=== PATIENT | male | born 2005 | race Caucasian/White ===

== ENCOUNTER 2024-03-13 15:23 | Inpatient (IN) | payer MEDICAID, SELFPAY ==
[2024-03-13] VITALS (104 sets, daily range): BP systolic 82–136; BP diastolic 39–84; PULSE 92–139; RESP 4–29; TEMP 36.6; O2SAT 95–100
--- NOTE | 2024-03-13 15:30 | RT.EKG_ITS ---
APPROVED REPORT Exam: Resting ECG Reason for Exam: OD Patient Location: E HR:108 bpm ECG Measurements Heart Rate 108 AXIS AK 117 P 56 QRSd 88 QRS 74 QT 329 T 57 QTc 441 Conclusion Sinus tachycardia...rate> 99 I have reviewed and interpreted ECG and agree with software generated interpretation.
--- NOTE | 2024-03-13 15:41 | W.ED.GENAD ---
Discharge Plan Disposition Patient Disposition: Admit to [facility] Condition: Stable Discharge Details Chief Complaint: Suicide-Atempt Clinical Impression: Intentional overdose Primary Care Provider: Beronica,Local ED Provider: Balbir Early Home Meds and New Rx's Prescriptions: No Action albuterol 90 mcg/actuation aerosol 90 mcg inhalation PRN bupropion HCl [Wellbutrin XL] 300 mg PO .daily HPI General Date/Time Provider Initiated Documentation: 03/13/24 15:40. HPI Narrative: 18 year-old male presents to ED today by POV/ambulating with his father with a chief complaint of intentional ingestion of 3000mg of XR Wellbutrin with onset at 1030. Quality described as suicidal intention, not in therapy- no prior attempts, but deals with lifelong chronic suicidality, no radiation to chest pain, shortness of breath, fever/chills/sweats, endorses some nausea, dry mouth, tingling in hands, denies tremors. Severity is described as mild currently. Palliating factors include nothing specific. Provoking factors include nothing specific. Events leading up to the incident/Associated Symptoms: Patient has father with him, supportive appropriate interactions. Patient not anticoagulated. Related Data Home Medications ?Medication ?Instructions ?Recorded ?Confirmed albuterol 90 mcg/actuation aerosol 90 mcg inhalation PRN 03/13/24 03/13/24 inhaler bupropion HCl 300 mg PO .daily 03/13/24 03/13/24 General Stated Complaint: Suicide-Atempt KRISTIN: 2 Review of Systems All systems reviewed & are unremarkable except as noted in HPI and below Exam Narrative Exam Narrative: GENERAL APPEARANCE: Well-nourished, non-toxic, awake and alert, atraumatic, no acute distress. SKIN: Warm, pink, dry, intact, without rashes/lesions/ulcerations. HEAD: Normocephalic, atraumatic, normal hair distribution for gender/age. EYES: Normal conjunctiva, no exudates on lids/lashes. ENT: Nares patent, no circumoral cyanosis, no facial swelling, minor tongue fasciculations NECK: Supple, trachea midline, painless cervical ROM. LUNGS/CHEST: Lungs CTA bilaterally, non-labored respirations, normal A/P diameter, symmetrical expansion, no chest wall deformity HEART (CV/PV): Regular rate and rhythm without murmur, no peripheral edema, no JVD. ABDOMEN: Soft, non-distended, no guarding. MSK: Normal ROM, no swelling/deformity to bilateral UEs or LEs, moving all extremities without weakness, no cyanosis, spine midline without tenderness, normal curvature. NEURO: Mental Status AAOx4 - alert to person, place, time, events No facial droop, no forehead involvement. Motor: No focal weakness - strength 5/5 in bilateral UEs and LEs, proximal and distal, symmetric. Sensory: sensation intact to light touch globally. Gait normal: patient ambulated without ataxia into ED room. PSYCH: euthymic, cooperative, pleasant, appropriate speech Course Vital Signs Vital signs: Vital Signs Temperature 36.6 C 03/13/24 15:31 Pulse 125 H 03/13/24 15:31 Respiratory Rate 16 03/13/24 15:31 Blood Pressure 134/84 03/13/24 15:31 Pulse Oximetry 100 03/13/24 15:31 Temperature 36.6 C 03/13/24 15:31 Temperature Source Temporal Artery Scan 03/13/24 15:31 Pulse 125 H 03/13/24 15:31 Respiratory Rate 16 03/13/24 15:31 Blood Pressure 134/84 03/13/24 15:31 Blood Pressure Position Sitting 03/13/24 15:31 Pulse Oximetry 100 03/13/24 15:31 Oxygen Delivery Method Room Air 03/13/24 15:31 Oxygen Flow Rate 0 03/13/24 15:31 Pain Level 0 03/13/24 15:31 Medical Decision Making This dictation utilizes [id number] dictation software and may contain unedited grammatical errors. 18 year-old male presents to ED today by POV/ambulating with his father with a chief complaint of intentional ingestion of 3000mg of XR Wellbutrin with onset at 1030. Quality described as suicidal intention, not in therapy- no prior attempts, but deals with lifelong chronic suicidality, no radiation to chest pain, shortness of breath, fever/chills/sweats, endorses some nausea, dry mouth, tingling in hands, denies tremors. Severity is described as mild currently. Palliating factors include nothing specific. Provoking factors include nothing specific. Events leading up to the incident/Associated Symptoms: Patient has father with him, supportive appropriate interactions.. Patients' medical history: Depression, asthma. Family and social history: Lives at home with father, currently unemployed due to depression. Pertinent exam findings / vital signs include minor tongue fasciculations, benign cardiopulmonary status on arrival, benign abdomen, no tremulous movements. Differential / pathologies of concern include intentional overdose, high risk for developing seizures. Diagnostic studies of: -CBC, CMP, UDS, UA, alcohol level, acetaminophen level, salicylates, magnesium, serial EKGs. -CBC benign, no anemia or leukocytosis -CMP shows very mild hypokalemia 3.4 no other actionable abnormalities -UDS is negative -Alcohol level negative -Salicylates and acetaminophen level negative -UA shows ketonuria -Initial EKG shows a heart rate of 108 bpm with normal QT QTc intervals, normal axis, no ST changes or T wave inversions, questionable ST depression in V3 and 4 less than 1 mm, flattening of the T waves in the anterior leads -Repeat EKG q2HR shows mild increase in QT to 450, no widened QRS Interventions of: -1mg Ativan given shortly after arrival, given 1L IVF NS bolus, then started on LR @ 250mL/hr. ED Course/Assessment/Plan: 18-year-old male presents with intentional ingestion of extended release Wellbutrin of 3000 mg at 1030 this morning. He states that he had suicidal intent. I did speak with [facility] poison control they recommend aggressive supportive measures, benzos for any tremulous movements, agitations, hallucinations, recommend standard seizure protocol sometimes stating that these patients have a risk to go into status epilepticus and required intubation. They need a minimum of 24 hours observation, some have had seizure activity after 24 hours as well. Serial EKG shows no concerns for widened QRS or QTc prolongation, patient remained stable throughout his visit here today with mild tachycardia in the 10 7-1 15 range with normotensive blood pressure, no developing fevers, no worsening tremulous movements. I did present the patient to be admitted here at [facility], Dr. Scott accepted for admission at 1930. Patient is not medically cleared to speak with [facility] at this time. Findings not consistent with active seizure activity. Disposition of Intentional Overdose. Patient verbalized understanding of the plan and return to ED criteria and engaged in shared decision making. Medical Records Medical records reviewed: Yes I reviewed the patient's medical records. Lab Data Lab results reviewed: Yes I reviewed the patient's lab results. Labs: Laboratory Tests Range/Units 03/13/24 03/13/24 16:05 16:32 WBC (4.4-10.8) 10^3/uL 5.37 RBC (4.36-5.78) 10^6/uL 5.69 Hgb (13.5-17.5) g/dL 17.1 Hct (40.0-50.0) % 46.7 MCV (80-95) fL 82 MCH (27.0-33.0) pg 30.1 MCHC (32.0-36.0) % 36.6 H RDW (11.8-14.1) % 11.4 L Plt Count (130-400) 10^3/uL 269 MPV (8.0-11.0) fL 9.7 Immature Gran % % 0.2 Neutrophils % % 57.9 Lymphocytes % % 32.6 Monocytes % % 7.8 Eosinophils % % 0.9 Basophils % % 0.6 Nucleated RBC % (0.0-0.3) % 0.0 Absolute Neutrophils (1.2-6.7) 10^3/uL 3.11 Absolute Lymphocytes (1.2-3.4) 10^3/uL 1.75 Absolute Monocytes (0.1-0.8) 10^3/uL 0.42 Absolute Eosinophils (0.0-0.7) 10^3/uL 0.05 Absolute Basophils (0.0-0.2) 10^3/uL 0.03 Sodium (136-145) mmol/L 139 Potassium (3.5-5.1) mmol/L 3.4 L Chloride (98-107) mmol/L 103 Carbon Dioxide (21.0-32.0) mmol/L 24.6 Anion Gap (3-11) mmol/L 11.4 H BUN (7-18) mg/dL 10 Creatinine (0.70-1.30) mg/dL 1.3 Est GFR (CKD-EPI 2020) (mL/min/1.73m2) 80.65 Glucose (74-106) mg/dL 130 H Calcium (8.5-10.1) mg/dL 9.6 Magnesium (1.8-2.4) mg/dL 2.0 Total Bilirubin (0.2-1.0) mg/dL 1.00 AST (15-37) U/L 14 L ALT (16-63) U/L 17 Alkaline Phosphatase (46-116) U/L 73 Total Protein (6.4-8.2) g/dL 7.6 Albumin (3.4-5.0) g/dL 4.5 Urine Color (Yellow) Yellow Urine Clarity (Clear) Clear Urine pH (5-8) 8.5 H Ur Specific [place] (1.005-1.025) 1.020 Urine Protein (Neg-Trace) mg/dL Negative Urine Ketones (Negative) mg/dL 80 H Urine Blood (Negative) Negative Urine Nitrite (Negative) Negative Urine Bilirubin (Negative) Negative Urine Urobilinogen (Up to 0.2) mg/dL 0.2 Ur Leukocyte Esterase (Negative) Negative Urine Glucose (Negative) mg/dL Negative Salicylates (<2.8) mg/dL < 2.8 Urine Opiates Screen (Negative) Negative Urine Methadone Screen (Negative) Negative Acetaminophen (10-30) ug/mL < 2 Ur Barbiturates Screen (Negative) Negative Ur Tricyclics Screen (Negative) Negative Ur Amphetamines Screen (Negative) Negative U Benzodiazepines Scrn (Negative) Negative Urine Cocaine Screen (Negative) Negative Ur THC Screen (Negative) Negative Ethyl Alcohol (<10) mg/dL < 3.0 Quality:SDOH Health Related Social Needs: No Data to Display PFSH All Active Problems (Updated 03/13/24 @ 19:51 by JOSE Mccurdy) Intentional overdose (Acute) Social History Smoking/Tobacco Use Status: Never Smoking risk assessment performed?: Yes Alcohol Intake: current Alcohol Intake frequency: holidays/special occasions only Alcohol type: beer, wine and hard liquor Drug use: Never Substance use type: does not use Housing: apartment Do you feel safe at home: Yes Additional Social history: No currently romantic relationship. Positive supportive relationship w mom and dad as well as both brothers.
[2024-03-13] MEDS: Normal Saline 1,000 ML 1000 ML IV (16:10)
[2024-03-13 16:13] LABS: Abs Immature Grans 0.01 10^3/uL (0.0-0.06); Absolute Basophil Count 0.03 10^3/uL (0.0-0.2); Absolute Eosinophil Count 0.05 10^3/uL (0.0-0.7); Absolute Lymphocyte Count 1.75 10^3/uL (1.2-3.4); Absolute Monocyte Count 0.42 10^3/uL (0.1-0.8); Absolute Neutrophil Count 3.11 10^3/uL (1.2-6.7); Basophils % 0.6 %; Eosinophils % 0.9 %; HCT 46.7 % (40.0-50.0); HGB 17.1 g/dL (13.5-17.5); Immature Grans % 0.2 %; Lymphocytes % 32.6 %; MCH 30.1 pg (27.0-33.0); MCHC 36.6 % (32.0-36.0); MCV 82 fL (80-95); MPV 9.7 fL (8.0-11.0); Monocytes % 7.8 %; Neutrophils % 57.9 %; Platelet Count 269 10^3/uL (130-400); RBC 5.69 10^6/uL (4.36-5.78); RDW 11.4 % (11.8-14.1); RDW-SD 33.7 fL; WBC 5.37 10^3/uL (4.4-10.8)
[2024-03-13] MEDS: LORazepam 2 MG/ML VIAL IVP (16:23)
[2024-03-13 16:28] LABS: ALT 17 U/L (16-63); AST 14 U/L (15-37); Albumin 4.5 g/dL (3.4-5.0); Alkaline Phosphatase 73 U/L (46-116); Anion Gap 11.4 mmol/L (3-11); BUN 10 mg/dL (7-18); CO2 24.6 mmol/L (21.0-32.0); CREATININE 1.3 mg/dL (0.70-1.30); Calcium 9.6 mg/dL (8.5-10.1); Chloride 103 mmol/L (98-107); ETHANOL BLOOD < 3.0 mg/dL (<10); Estimated GFR 80.65 (mL/min/1.73m2); Glucose 130 mg/dL (74-106); Potassium 3.4 mmol/L (3.5-5.1); Sodium 139 mmol/L (136-145); Total Protein 7.6 g/dL (6.4-8.2)
[2024-03-13 16:46] LABS: Bilirubin Negative (Negative); Blood Negative (Negative); Clarity Clear (Clear); Glucose Negative (Negative); Ketones 80 mg/dL (Negative); Leukocyte Esterase Negative (Negative); Nitrite Negative (Negative); Urobilinogen 0.2 mg/dL (Up to 0.2); pH 8.5 (5-8)
[2024-03-13 16:53] LABS: Acetaminophen < 2 ug/mL (10-30); Salicylate < 2.8 mg/dL (<2.8)
[2024-03-13 17:05] LABS: *AMPHETAMINES SCREEN URINE Negative (Negative); *BARBITURATES SCREEN URINE Negative (Negative); *BENZODIAZEPINES SCREEN URINE Negative (Negative); Cannabinoids THC Negative (Negative); Cocaine Screen,Urine Negative (Negative); METHADONE URINE SCREEN Negative (Negative); OPIATES URINE SCREEN Negative (Negative)
[2024-03-13 17:07] LABS: Tricyclic Antidepressants Negative (Negative)
--- NOTE | 2024-03-13 17:39 | NUR.NOTE ---
Nursing Note: Mom called to check in on the patient. She is not on his HIPAA but he did give me verbal confirmation to fill her in on what was happening. She is hoping to come and check in on him tomorrow.
--- NOTE | 2024-03-13 20:00 | RT.EKG_ITS ---
APPROVED REPORT Exam: Resting ECG Reason for Exam: wellbutrin OD Patient Location: E HR:110 bpm ECG Measurements Heart Rate 110 AXIS MI 176 P 52 QRSd 93 QRS 67 QT 335 T 44 QTc 453 Conclusion Sinus tachycardia...rate> 99 I have reviewed and interpreted ECG and agree with software generated interpretation.
[2024-03-13] MEDS: Ondansetron 4 MG/2 ML VIAL (20:07)
[2024-03-13] MEDS: LORazepam 2 MG/ML VIAL 1 MG IVP (20:24)
--- NOTE | 2024-03-13 20:45 | W.PM.HP.N ---
Date of service: 03/13/24 Time of Service: 20:45 Assessment and Plan Assessment and plan (1) Intentional overdose: Start date: 03/13/24 Status: Acute Assessment and plan: This is a 18-year-old gentleman with chronic thoughts of suicide and depression with ADHD by history recently on Wellbutrin XL with which he overdosed intentionally. He will be observed for 24 hours with frequent EKG and cardiac monitoring as well as observation for seizure activity or unstable vital signs. Presently he is doing well. He will have a sitter overnight and once medically cleared after 24 hours, he will see noticing the more for plan of care. He is a full code. Qualifiers: Encounter type: initial encounter Qualified Code(s): T50.902A - Poisoning by unspecified drugs, medicaments and biological substances, intentional self-harm, initial encounter (2) Depression with suicidal ideation: Start date: 03/13/24 Status: Chronic Assessment and plan: This is been a chronic problem with this patient and he needs better follow-up with counseling and evaluation for possible PTSD. He is not open being hesitant to discuss possible traumas but this may be a factor in his continued dysfunction living with his father and suicidal thoughts. He has not self treating with alcohol or illicit drugs at this time. (3) Hypokalemia: Start date: 03/13/24 Status: Acute Assessment and plan: Patient has hypokalemia which may be nutritional not being on diuretics chronically. Potassium supplements if tolerated. He did have some slight nausea have to be admitted and this we treated with Zofran IV. Follow-up labs in the morning. History of Present Illness History of Present Illness Chief Complaint: Attempted suicide with Wellbutrin overdose, continuous suicidal ideation. Narrative: This is a 18-year-old male patient who has a chronic history of depression with failed counseling and continues suicidal ideation mostly thinking of drown himself or stab himself with a knife when he was younger but more recently he overdosed on Wellbutrin 3 g which was a prescription for his mood disorder. He does have ADHD but is not on medical therapy. He also has a history of asthma but only uses rescue inhalers. Late the morning of his presentation at 10:30 he took 10 of his Wellbutrin XL 300 mg capsules and did not report this to his father with whom he lives until about 17:00 because of the sensation that it was kicking in and he panicked because of the sedation. In the ED he was somewhat sedated and intubation was entertained but he did not have respiratory suppression and did not require intervention. He was slightly anxious but his cardiac monitoring was stable and EKGs did not reveal any significant QT prolongation. His blood pressure was not elevated and slightly low but responded to IV fluids with lactated Ringer's 1000 cc bolus. He did have Ativan because of his anxiety and continued to have some slight tachycardia. He had no seizure activity but was on precautions with this overdose. The time I saw the patient he was comfortable and conversant with a normal affect and did not appear distressed. He will be seeing mental health once he is medically cleared and will have a sitter throughout the night because of his side effects. Poison control has been engaged and has no other recommendations. He will need a least 24-hour observation before being medically cleared. The most dangerous outcome from this overdose would be QT prolongation with fatal dysrhythmia, status epilepticus and/or respiratory suppression with sedation. He does not appear to be actively having suicidal ideation. With the patient having panic and aborting his suicide attempt and not having action on other suicidal ideation in the past, he may have a better prognosis for treatment and is open to counseling at this time as well as adjustment of medical therapy. He is a full code. Review of Systems Narrative: 13 point review of systems otherwise unrevealing or stable. PFSH All Active Problems (Updated 03/13/24 @ 22:16 by Kristian Martinez) Hypokalemia (Acute) Depression with suicidal ideation (Chronic) Intentional overdose (Acute) Social History Smoking/Tobacco Use Status: Never Smoking risk assessment performed?: Yes Alcohol Intake: current Alcohol Intake frequency: holidays/special occasions only Alcohol type: beer, wine and hard liquor Drug use: Never Substance use type: does not use Housing: house Do you feel safe at home: Yes Additional Social history: No currently romantic relationship. Positive supportive relationship w mom and dad as well as both brothers. Meds Allergies and Home Medications Allergies Allergy/AdvReac Type Severity Reaction Status Date / Time No Known Allergies Allergy Unverified 03/14/24 01:59 Home Medications ?Medication ?Instructions ?Recorded ?Confirmed ?Type albuterol 90 mcg/actuation aerosol 90 mcg inhalation PRN 03/13/24 03/13/24 History inhaler bupropion HCl 300 mg PO .daily 03/13/24 03/13/24 History Exam Narrative Exam Narrative: General: Patient is moderately obese, appears younger than stated age, smiling during conversation and very cooperative with normal affect and good eye contact. He is in no acute distress. He does not appear depressed. HEENT: Normocephalic, eyes with pupils equal and reactive to light specially, extraocular movement intact and sclera anicteric. Oropharynx with moist Koza and good sensation. Neck: Supple without JVD. Back: Normal posture without CVA tenderness. Lungs: Clear to oscillation percussion without focal rales or rhonchi. No expiratory wheeze. Vesicular breath sounds diffusely. Heart: Regular rate rhythm with no murmurs gallops appreciated. Abdomen: Mildly obese contour, soft palpation with no guarding or rebound. Nontender. Bowel sounds positive all quadrants. No palpable hepatosplenomegaly. Genitalia/rectal: Exam deferred. Extremity: No clubbing, cyanosis or pitting edema. Peripheral pulses intact with good capillary refill. Skin: Normal color, warm and dry. Neuro: Cranial nerves II to XII, no focal motor deficits or tremor. Psych: Slightly euphoric affect the patient appearing comfortable and actually smiling during exam. Good eye contact. Mood is slightly depressed no abnormal thought processes. Remote and recent memory intact. Patient appears to have good insight into his need for treatment of his psychiatric disease. Results Labs 03/14/24 06:15 03/14/24 06:15 Labs: Laboratory Results - last 24 hr 03/13/24 03/13/24 16:05 16:32 WBC 5.37 RBC 5.69 Hgb 17.1 Hct 46.7 MCV 82 MCH 30.1 MCHC 36.6 H RDW 11.4 L Plt Count 269 MPV 9.7 Immature Gran % 0.2 Neutrophils % 57.9 Lymphocytes % 32.6 Monocytes % 7.8 Eosinophils % 0.9 Basophils % 0.6 Nucleated RBC % 0.0 Absolute Neutrophils 3.11 Absolute Lymphocytes 1.75 Absolute Monocytes 0.42 Absolute Eosinophils 0.05 Absolute Basophils 0.03 Sodium 139 Potassium 3.4 L Chloride 103 Carbon Dioxide 24.6 Anion Gap 11.4 H BUN 10 Creatinine 1.3 Est GFR (CKD-EPI 2021) 80.65 Glucose 130 H Calcium 9.6 Magnesium 2.0 Total Bilirubin 1.00 AST 14 L ALT 17 Alkaline Phosphatase 73 Total Protein 7.6 Albumin 4.5 Urine Color Yellow Urine Clarity Clear Urine pH 8.5 H Ur Specific [place] 1.020 Urine Protein Negative Urine Ketones 80 H Urine Blood Negative Urine Nitrite Negative Urine Bilirubin Negative Urine Urobilinogen 0.2 Ur Leukocyte Esterase Negative Urine Glucose Negative Salicylates < 2.8 Urine Opiates Screen Negative Urine Methadone Screen Negative Acetaminophen < 2 Ur Barbiturates Screen Negative Ur Tricyclics Screen Negative Ur Amphetamines Screen Negative U Benzodiazepines Scrn Negative Urine Cocaine Screen Negative Ur THC Screen Negative Ethyl Alcohol < 3.0 Last Vital Signs Temp 36.6 C 03/13/24 15:31 Pulse 92 H 03/13/24 18:46 Resp 20 03/13/24 19:00 BP 82/40 L 03/13/24 18:46 Pulse Ox 98 03/13/24 19:00 Time Spent Time spent with Patient: >75 minutes Time was spent: preparing to see the patient(eg.review tests), obtaining and/or reviewing separately otained hiistory, ordering medications,tests, procedures, referring, communicating with other health career transition specialist, indepentently interpreting results, counseling the patient and care coordination
--- NOTE | 2024-03-13 22:00 | RT.EKG_ITS ---
APPROVED REPORT Exam: Resting ECG Reason for Exam: wellbutrin OD Patient Location: E HR:111 bpm ECG Measurements Heart Rate 111 AXIS MS 174 P 61 QRSd 85 QRS 72 QT 330 T 57 QTc 449 Conclusion Sinus tachycardia...rate> 99 Nonspecific T abnormalities, lateral leads...T <-0.10mV, I aVL V5 V6 I have reviewed and interpreted ECG and agree with software generated interpretation.
--- NOTE | 2024-03-14 | RT.EKG_ITS ---
APPROVED REPORT Exam: Resting ECG Reason for Exam: wellbutrin OD Patient Location: I HR:109 bpm ECG Measurements Heart Rate 109 AXIS NE 150 P 57 QRSd 94 QRS 60 QT 342 T 45 QTc 461 Conclusion Sinus tachycardia...rate> 99 Borderline T wave abnormalities...T/QRS ratio < 1/20 or flat T
[2024-03-14 00:01] VITALS: BP 124/66; PULSE 107; RESP 20; TEMP 37.5; O2SAT 99
[2024-03-14 00:39] LABS: TSH (W/Ref FT4) 2.11 uIU/mL (0.36-3.74)
[2024-03-14 00:46] VITALS: BP 124/66; PULSE 107; RESP 20; TEMP 37.5; O2SAT 99
--- NOTE | 2024-03-14 01:00 | W.PC.ACHO ---
Registration Status: Primary Language: Preferred Language: ED Information & Data Chief Complaint Suicide-Atempt 03/13/24 15:42 Triage Note Pt states they took 10 x 03/13/24 15:31 300ER Wellbutrin (his own prescribed pills) at 1030 this morning. Pt states he was trying to kill himself d /t 'self dislike'. Pt states this is the first time he has attempted suicide. Pt states he has had thoughts of suicide his entire life. Supportive father is with patient. Pt states he currently lives w his father. Pt is currently unemployed d/t depression issues. Pt states he is now feeling tired and nausea and states it is difficult to think. Pt states he is currently not in therapy. Pt states he is not good w therapy because he didn't feel comfortable talking about things. Pt mom who lives in [place] is also supportive. Pt has two younger brothers who live w their mother. Pt states outside of his father he does not have a support system/friends who live in this area. Denies drug/etoh use. Most Recent Vital Signs Temperature 37.5 C 03/14/24 00:46 Temperature Source Tympanic 03/14/24 00:01 Pulse 107 H 03/14/24 00:46 Pulse 122 H 03/13/24 20:50 Respiratory Rate 20 03/14/24 00:46 Respiratory Effort Normal, Non-Labored 03/14/24 00:46 Respiratory Depth Normal 03/14/24 00:46 Respiratory Pattern Normal 03/14/24 00:46 Blood Pressure 124/66 03/14/24 00:46 Blood Pressure Mean 88 03/13/24 20:46 Blood Pressure Position Sitting 03/13/24 15:31 Pulse Oximetry 99 03/14/24 00:46 Oxygen Delivery Method Room Air 03/14/24 00:46 Oxygen Flow Rate 0 03/14/24 00:46 Pain Level 0 03/14/24 00:46 IV IV Catheter Type [Right Peripheral IV Antecubital] IV Catheter Gauge [Right 18 Antecubital] Diet Orders Category Date Time Status Regular/Normal [DIET] Nutrition 03/14/24 Breakfast Active Diagnostics 03/14/24 03/13/24 03/13/24 Range/Units 05:35 16:32 16:05 WBC Pending 5.37 (4.4-10.8) 10^3/uL RBC Pending 5.69 (4.36-5.78) 10^6/uL Hgb Pending 17.1 (13.5-17.5) g/dL Hct Pending 46.7 (40.0-50.0) % MCV Pending 82 (80-95) fL MCH Pending 30.1 (27.0-33.0) pg MCHC Pending 36.6 H (32.0-36.0) % RDW Pending 11.4 L (11.8-14.1) % Plt Count Pending 269 (130-400) 10^3/uL MPV Pending 9.7 (8.0-11.0) fL Immature Gran % 0.2 % Neutrophils % 57.9 % Lymphocytes % 32.6 % Monocytes % 7.8 % Eosinophils % 0.9 % Basophils % 0.6 % Nucleated RBC % 0.0 (0.0-0.3) % Absolute Neutrophils 3.11 (1.2-6.7) 10^3/uL Absolute Lymphocytes 1.75 (1.2-3.4) 10^3/uL Absolute Monocytes 0.42 (0.1-0.8) 10^3/uL Absolute Eosinophils 0.05 (0.0-0.7) 10^3/uL Absolute Basophils 0.03 (0.0-0.2) 10^3/uL Sodium Pending 139 (136-145) mmol/L Potassium Pending 3.4 L (3.5-5.1) mmol/L Chloride Pending 103 (98-107) mmol/L Carbon Dioxide Pending 24.6 (21.0-32.0) mmol/L Anion Gap Pending 11.4 H (3-11) mmol/L BUN Pending 10 (7-18) mg/dL Creatinine Pending 1.3 (0.70-1.30) mg/dL Est GFR (CKD-EPI 2020) Pending 80.65 (mL/min/1.73m2) Glucose Pending 130 H (74-106) mg/dL Calcium Pending 9.6 (8.5-10.1) mg/dL Magnesium Pending 2.0 (1.8-2.4) mg/dL Total Bilirubin Pending 1.00 (0.2-1.0) mg/dL AST Pending 14 L (15-37) U/L ALT Pending 17 (16-63) U/L Alkaline Phosphatase Pending 73 (46-116) U/L Total Protein Pending 7.6 (6.4-8.2) g/dL Albumin Pending 4.5 (3.4-5.0) g/dL TSH 2.11 (0.36-3.74) uIU/mL Urine Color Yellow (Yellow) Urine Clarity Clear (Clear) Urine pH 8.5 H (5-8) Ur Specific [place] 1.020 (1.005-1.025) Urine Protein Negative (Neg-Trace) mg/dL Urine Ketones 80 H (Negative) mg/dL Urine Blood Negative (Negative) Urine Nitrite Negative (Negative) Urine Bilirubin Negative (Negative) Urine Urobilinogen 0.2 (Up to 0.2) mg/dL Ur Leukocyte Esterase Negative (Negative) Urine Glucose Negative (Negative) mg/dL Salicylates < 2.8 (<2.8) mg/dL Urine Opiates Screen Negative (Negative) Urine Methadone Screen Negative (Negative) Acetaminophen < 2 (10-30) ug/mL Ur Barbiturates Screen Negative (Negative) Ur Tricyclics Screen Negative (Negative) Ur Amphetamines Screen Negative (Negative) U Benzodiazepines Scrn Negative (Negative) Urine Cocaine Screen Negative (Negative) Ur THC Screen Negative (Negative) Ethyl Alcohol < 3.0 (<10) mg/dL Intake and Output - 24 Hour Total 03/13/24 15:23 thru 03/14/24 00:46 Intake Total 1000 Balance 1000 Weight 68.03 kg Intake: IV 1000 Falls Risk Assessment History of Falls No History 03/14/24 00:46 Contributing Factors Medications 03/14/24 00:46 Ambulatory Aids Independent 03/14/24 00:46 Tubes/Lines None 03/14/24 00:46 Gait Evaluation No gait disturbance 03/14/24 00:46 Cognition No cognitive impairment 03/14/24 00:46 Fall Total Score 3 03/14/24 00:46 Level of Risk Standard/Low Risk 03/14/24 00:46 Problems (Last Reviewed 03/13/24 @ 20:45 by Kristian Martinez) Hypokalemia (Acute) Depression with suicidal ideation (Chronic) Intentional overdose (Acute) Notes 03/13/24 17:39 Nursing Notes by Ailyn Adan Nursing Note: Mom called to check in on the patient. She is not on his HIPAA but he did give me verbal confirmation to fill her in on what was happening. She is hoping to come and check in on him tomorrow. Initialized on 03/13/24 17:39 - END OF NOTE v v v v v v v v v Sending and/or Receiving Nurses: Please use comment section below to note any information pertinent to the patient hand-off not included above. Information / Comments: Patient with history of anxiety and depression presents with his father stating he took 3000mg Wellbutrin at ~10;30am 03/13/2024. Patient is calm and cooperative. Patient states this was a suicide attempt. VSS. Patient received 1L NS. Plan for EKG every 4 hours and telemetry monitoring to monitor Qtc. Psych eval once medically stable. Report received from: MILLICENT Ho RN
[2024-03-14 03:15] VITALS: BP 106/58; PULSE 114; RESP 20; TEMP 37.1; O2SAT 98
[2024-03-14] MEDS: Ondansetron 4 MG/2 ML VIAL IVP (03:50)
--- NOTE | 2024-03-14 04:00 | RT.EKG_ITS ---
APPROVED REPORT Exam: Resting ECG Reason for Exam: wellbutrin overdose Patient Location: I HR:101 bpm ECG Measurements Heart Rate 101 AXIS OK 148 P 16 QRSd 94 QRS 1 QT 354 T 8 QTc 459 Conclusion Sinus tachycardia...rate> 99 Borderline T wave abnormalities...T/QRS ratio < 1/20 or flat T
[2024-03-14 06:47] LABS: HCT 39.3 % (40.0-50.0); HGB 14.2 g/dL (13.5-17.5); MCH 30.3 pg (27.0-33.0); MCHC 36.1 % (32.0-36.0); MCV 84 fL (80-95); MPV 9.9 fL (8.0-11.0); Platelet Count 211 10^3/uL (130-400); RBC 4.68 10^6/uL (4.36-5.78); RDW 11.5 % (11.8-14.1); WBC 6.71 10^3/uL (4.4-10.8)
[2024-03-14 07:09] LABS: ALT 15 U/L (16-63); AST 13 U/L (15-37); Albumin 3.8 g/dL (3.4-5.0); Alkaline Phosphatase 59 U/L (46-116); Anion Gap 10.2 mmol/L (3-11); BUN 6 mg/dL (7-18); Bilirubin, Total 0.91 mg/dL (0.2-1.0); CO2 24.8 mmol/L (21.0-32.0); CREATININE 1.1 mg/dL (0.70-1.30); Chloride 104 mmol/L (98-107); Estimated GFR 98.56 (mL/min/1.73m2); Glucose 98 mg/dL (74-106); Potassium 3.2 mmol/L (3.5-5.1); Sodium 139 mmol/L (136-145); Total Protein 6.4 g/dL (6.4-8.2)
[2024-03-14 07:34] VITALS: BP 108/66; PULSE 113; RESP 12; TEMP 37.2; O2SAT 100
--- NOTE | 2024-03-14 08:00 | RT.EKG_ITS ---
APPROVED REPORT Exam: Resting ECG Reason for Exam: wellbutrin overdose Patient Location: I HR:96 bpm ECG Measurements Heart Rate 96 AXIS SD 122 P 18 QRSd 72 QRS 67 QT 436 T -27 QTc 552 Conclusion Sinus rhythm...normal P axis, V-rate 50- 99 Borderline T abnormalities, inferior leads...T flat/neg, II III aVF Prolonged QT interval...QTc >488mS
[2024-03-14] MEDS: Normal Saline Flush 10 ML SYR IVP (09:01)
--- NOTE | 2024-03-14 11:22 | PHA.REVIEW2 ---
Pharmacy Admission Review Admission Clinical Review Admission Pharmacy Review: Hypokalemia (Acute) Intentional overdose (Acute) No Known Allergies Allergy (Unverified 03/14/24 01:59) Resuscitation Status Full Code Height 5 ft 8 in Weight 68.03 kg Comments Comments/Follow Ups: Per morning meeting, monitoring for any seizure activity for total of 24 hours (~ 1600 today) then putting in for psych consult. Pharmacy Admission Review Renal Dosing Renal Dosing: BUN 6 mg/dL (7-18) L 03/14/24 06:15 Creatinine 1.1 mg/dL (0.70-1.30) 03/14/24 06:15 Medications needing adjustments: Reviewed (CrCl 103 mL/min) List of meds needing interventions: Current medications are okay Anticoagulation Anticoagulation: Hgb 14.2 g/dL (13.5-17.5) D 03/14/24 06:15 Hct 39.3 % (40.0-50.0) L 03/14/24 06:15 Plt Count 211 10^3/uL (130-400) 03/14/24 06:15 Creatinine 1.1 mg/dL (0.70-1.30) 03/14/24 06:15 DVT Prophylaxis: Intervened (Order had been put in for enoxaparin 40mg daily. Reached out to provider to see if they really wanted patient to have this. Patient is 18 years old, mobile, BMI 22. I don't see any reason for them to need prophylaxis. Provider asked that I put the order on hold until they are able to review patient.) Relevant Labs Relevant Labs: Sodium 139 mmol/L (136-145) 03/14/24 06:15 Potassium 3.2 mmol/L (3.5-5.1) L 03/14/24 06:15 Chloride 104 mmol/L (98-107) 03/14/24 06:15 Magnesium 2.0 mg/dL (1.8-2.4) 03/14/24 06:15 Electrolytes, C-Reactive P, ESR: Intervened (K 3.2 - reached out to provider to make sure they were aware, no order put in for potassium) Cardiac Review Cardiac Review: Blood Pressure : Heart Rate 108/66 : 113 0734 Blood Pressure : Heart Rate 106/58 : 114 0315 Blood Pressure : Heart Rate 124/66 : 107 0046 Blood Pressure : Heart Rate 124/66 : 107 0001 BP, HR, EF%: Reviewed (HR has been consistently elevated during admission) QTc Review QTc: Intervened (Reached out to provider and told them to consider discontinuing order for PRN ondansetron if QTc remains elevated) List meds needing interventions: 03/13 1530: 441 03/13 2000: 453 03/13 2200: 449 03/14 0000: 461 03/14 0400: 459 03/14 0800: 552 IV to PO Switch IV Medications: Reviewed (ondansetron) Home Meds Home Med List reviewed: Reviewed Relevent Home Meds Not ordered & why?: bupropion (on hold - intentional OD, took 3000mg at home) Current Meds Current Medication Order Review: Intervened Comments: Added 2nd PRN to lorazepam order per pharmacy protocol Comments Comments/Follow Ups: Per morning meeting, monitoring for any seizure activity for total of 24 hours (~ 1600 today) then putting in for psych consult.
--- NOTE | 2024-03-14 11:32 | CMSP_ITS ---
Date of service: 03/14/24 Time of Service: 11:32 Care Management Safety Plan Status Status: Interim Reason for Wait Reason for Wait: Assessment/Screening Safety Plan Safety Plan: Keyon was admitted last evening with SI. He is awaiting medical clearance in order to be screened by [facility] crisis staff. CM will respond to assess patient after patient has been medically cleared and assessed by screener. If screener deems patient meets criteria for psychiatric stabilization CM will facilitate interdepartmental huddle with [facility] screener for safety planning considerations and meet with patient to review [facility] policy and safety plan, establish individual wishes for treatment and maintain patient rights. In the interim; please note safety plan below to guide patient care while awaiting further assessment in the ED.? SAFETY PLAN: 1. Will remain on suicide precautions and in paper clothes.? 2. Will remain in room under direct supervision of one-on-one staff at all times provided by MONIQUE, [employer] surgical services director. 3. May have paper cups, plates, finger foods as well as a cardboard spoon with which to eat meals. 4. Follow [facility] Management of the Admitted Behavioral Health Patient policy. 5. Personal care: Comfort bath system only at this time. 6. Bathroom privileges: with escort in ED. Available in room without limitation on Med/Surg. 6. No personal belongings at this time; per RN discretion. 7. No visitors at this time. 8. Phone contact limited to legal contact at this time. 9. Activities: Music tablet per RN discretion. Med/Surg: Television and remote available at RN discretion. 10. Due to VOLUNTARY status, if patient wishes to leave [facility], staff will contact [facility] Crisis Screener ([phone]) and On-Call Child Life Assistant ([phone]) as soon as possible. In the event of elopement, notify [place] [employer] ([phone]). ?If deemed appropriate for inpatient psychiatric care, safety plan will be established with patient, and care team, to adhere to patient goals, identify restrictions based on behavioral status, address nutrition, and determine allowed personal belongings, tools for hygiene and personal care. As well plan will
[2024-03-14] MEDS: Potassium Chloride 20 MEQ TABCR PO ×2 (13:28→17:24)
--- NOTE | 2024-03-14 13:30 | NUR.NOTE ---
Nursing Note:1310: Spoke with Adolfo in poison control who recommended potassium and mag replacement to correct QT. FLIGHT TEST ENGINEER Leigha Porter made aware and placed orders for potassium, held mag since its WNL. FLIGHT TEST ENGINEER also made aware pt vomited his lunch, zofran d/cd, no new nausea meds, will CTM.
--- NOTE | 2024-03-14 13:30 | RT.EKG_ITS ---
APPROVED REPORT Exam: Resting ECG Reason for Exam: QTC Patient Location: I HR:91 bpm ECG Measurements Heart Rate 91 AXIS NE 130 P 19 QRSd 98 QRS 56 QT 391 T 76 QTc 482 Conclusion Sinus rhythm...normal P axis, V-rate 50- 99 Borderline T wave abnormalities...T/QRS ratio < 1/20 or flat T
[2024-03-14 15:00] VITALS: BP 127/74; PULSE 102; RESP 14; TEMP 36.9; O2SAT 100
--- NOTE | 2024-03-14 15:16 | W.PM.PROGNOT ---
Date of Service Date of service: 03/14/24 Time of Service: 15:16 Assessment and Plan Assessment and plan (1) Intentional overdose: Status: Acute Qualifiers: Encounter type: initial encounter Qualified Code(s): T50.902A - Poisoning by unspecified drugs, medicaments and biological substances, intentional self-harm, initial encounter (2) Depression with suicidal ideation: Status: Chronic (3) Hypokalemia: Status: Acute Subjective Subjective Patient reports: no new complaints, feels better, voiding w/o difficulty, nausea, vomiting and afebrile; denies shortness of breath Objective Last Vital Signs Temp 37.2 C 03/14/24 07:34 Pulse 113 H 03/14/24 07:34 Resp 12 03/14/24 07:34 BP 108/66 03/14/24 07:34 Pulse Ox 100 03/14/24 07:34 Laboratory Results - last 24 hr 03/13/24 03/13/24 03/14/24 16:05 16:32 06:15 WBC 5.37 6.71 RBC 5.69 4.68 Hgb 17.1 14.2 D Hct 46.7 39.3 L MCV 82 84 MCH 30.1 30.3 MCHC 36.6 H 36.1 H RDW 11.4 L 11.5 L Plt Count 269 211 MPV 9.7 9.9 Immature Gran % 0.2 Neutrophils % 57.9 Lymphocytes % 32.6 Monocytes % 7.8 Eosinophils % 0.9 Basophils % 0.6 Nucleated RBC % 0.0 Absolute Neutrophils 3.11 Absolute Lymphocytes 1.75 Absolute Monocytes 0.42 Absolute Eosinophils 0.05 Absolute Basophils 0.03 Sodium 139 139 Potassium 3.4 L 3.2 L Chloride 103 104 Carbon Dioxide 24.6 24.8 Anion Gap 11.4 H 10.2 BUN 10 6 L Creatinine 1.3 1.1 Est GFR (CKD-EPI 2020) 80.65 98.56 Glucose 130 H 98 Calcium 9.6 9.0 Magnesium 2.0 2.0 Total Bilirubin 1.00 0.91 AST 14 L 13 L ALT 17 15 L Alkaline Phosphatase 73 59 Total Protein 7.6 6.4 Albumin 4.5 3.8 TSH 2.11 Urine Color Yellow Urine Clarity Clear Urine pH 8.5 H Ur Specific [place] 1.020 Urine Protein Negative Urine Ketones 80 H Urine Blood Negative Urine Nitrite Negative Urine Bilirubin Negative Urine Urobilinogen 0.2 Ur Leukocyte Esterase Negative Urine Glucose Negative Salicylates < 2.8 Urine Opiates Screen Negative Urine Methadone Screen Negative Acetaminophen < 2 Ur Barbiturates Screen Negative Ur Tricyclics Screen Negative Ur Amphetamines Screen Negative U Benzodiazepines Scrn Negative Urine Cocaine Screen Negative Ur THC Screen Negative Ethyl Alcohol < 3.0
--- NOTE | 2024-03-14 15:42 | PDOC.CMIN ---
Date of service: 03/14/24 Time of Service: 15:42 Care Management Initial Assmt Initial Assessment Reason for Hospitalization: overdose of Wellbutrin Functional Status/Living Situation Patient Presentation: Keyon was sitting up in a chair fully dressed when CM met with him. He had been medically cleared this afternoon and was screened by [facility] Crisis. He was able to safety plan home and will have daily check ins for a week. Keyon has 2 brothers who live with his Mom and he lives with his Dad in [place]. He plans to go for counseling and stated he is feeling much better. Town of Residence: [place], [place] Resides with: Parent (father - Lenny Denis) Significant Other/Family: Out of area Employment Status: Unemployed (in between jobs at the moment) Instrumental Activities of Daily Living (ADLs): Independent Medications Medication Management: Issues/Barriers (overdosed on Wellbutrin) with Other (see above) Physical Functioning/Mobility Assistive Device: none Advance Directives Advance Directives: Do you have an Advance Directive: N 03/13/24 17:38 AD On File at [facility]: N 03/13/24 15:44 Date Asked 03/13/24 03/13/24 15:44 AD Date Reviewed COLST On File at [facility] COLST Date Scanned Code Status Resuscitation Status Full Code Portal Pt does not currently have a portal and education provided: No Insurance Coverage/Financial Issues Insurance: Medicaid Care Team Visit Care Team Role Provider Type Local No Primary Care Provider NON-[facility] STAFF PHYSICIAN JOSE Mccurdy Emergency Provider PHYSICIANS MEASUREMENT ANALYST Kristian Martinez Admit Provider NON-[facility] STAFF PHYSICIAN Attending Provider Discharge Potential Discharge Needs: Other ([facility] Safety plan with follow up) Anticipated Barriers to Discharge: None Identified Patient/Family Education Needs: Review discharge instructions, discuss Ask Me Three Transportation: Private vehicle Plan: Keyon will be discharged home with his Dad this afternoon, who will transport him home. He will follow up closely with [facility] and will receive daily check-ins for the next week. PFSH All Active Problems (Updated 03/13/24 @ 22:16 by Kristian Martinez) Hypokalemia (Acute) Depression with suicidal ideation (Chronic) Intentional overdose (Acute) Social History Smoking/Tobacco Use Status: Never Smoking risk assessment performed?: Yes Alcohol Intake: current Alcohol Intake frequency: holidays/special occasions only Alcohol type: beer, wine and hard liquor Drug use: Never Substance use type: does not use Housing: house Do you feel safe at home: Yes Additional Social history: No currently romantic relationship. Positive supportive relationship w mom and dad as well as both brothers. SDOH(Care Management) Screening Will the Patient Participate in the Screening?: Yes Do you worry about having a steady place to live?: no Problems where you live: no known problems In the past 12 months, have you had to go without electric, gas, oil or water in your home?: no Have you or anyone in your house had to go without enough food to eat?: no Has lack of transportation kept you from medical appointments or from doing things needed for daily living?: no Has anyone in your support network made you feel unsafe for any reason?: no
--- NOTE | 2024-03-14 16:00 | RT.EKG_ITS ---
APPROVED REPORT Exam: Resting ECG Reason for Exam: qtc Patient Location: I HR:89 bpm ECG Measurements Heart Rate 89 AXIS LA 132 P 33 QRSd 85 QRS 58 QT 355 T 33 QTc 432 Conclusion Sinus rhythm...normal P axis, V-rate 50- 99 Minor Nonspecific T abnormalities, lateral leads...T <-0.10mV, I aVL V5 V6
--- NOTE | 2024-03-14 16:24 | NUR.NOTE ---
Nursing Note: Updated pts father over the phone. Father pleasant and cooperative with POC.
--- NOTE | 2024-03-14 16:30 | NUR.NOTE ---
Nursing Note: Behavioral health consult from [phone].
--- NOTE | 2024-03-14 17:53 | W.PM.DS.N ---
Date of service: 03/14/24 Time of Service: 17:53 DS: Diagnosis Discharge Diagnosis (1) Intentional overdose: Status: Acute (2) Depression with suicidal ideation: Status: Chronic (3) Hypokalemia: Status: Acute Discharge Plan Disposition Patient Disposition: Home Condition: Improving Discharge Details Reason For Visit: Intentional overdose of Wellbutrin Admit Date/Time: 03/13/24 21:10 Admit Provider: Kristian Martinez Attending Provider: Kristian Martinez Primary Care Provider: Michelle Loco Hospital Course Hospital Course: This is a 18-year-old with history of chronic thoughts of suicide and depression with ADHD who was recently started on Wellbutrin XL with which he overdosed intentionally reportedly taking 3000 mg. He was admitted for observation for 24 hours with frequent EKG and cardiac monitoring. He remained hemodynamically stable with no seizure activity or unstable vital signs. He did experience some nausea and vomiting that responded to bowel rest. His QTc did become prolonged but normalized within 24 hours. He received potassium replacement and diet was advanced which was tolerated well. He was evaluated by mental health and deemed safe for discharge to home with outpatient follow up. He denied and further suicidal ideation. he is discharged to home and will discuss medication for depression with his outpatient provider. No new prescriptions or refills provided. discussed with DR Gan. Home Meds and New Rx's Prescriptions: Continued albuterol 90 mcg/actuation aerosol 90 mcg inhalation PRN Held bupropion HCl [Wellbutrin XL] 300 mg PO .daily Hold Instructions: and discuss with pcp at your follow up appointment Discharge Instructions Instructions: Hypokalemia, Suicide Prevention, Depression in adults - Discharge instructions Stand Alone Forms: Nursing Discharge Form Referrals: Michelle Loco [Primary Care Provider] - Activity:: Activity as Tolerated Equipment/Supplies:: No Equipment Needed Diet:: As Tolerated Discharge Orders Discharge Orders: Discharge Order (Routine); Ordered 03/14/24 Ordered By: Leigha Porter Discharge Data Discharge Date/Time-TO BE ENTERED AT DEPARTURE: 03/14/24 18:06 DS: Summary Time Spent with Patient providing and/or coordinating discharge services: Less than 30 minutes Status at Discharge Functional status at discharge: independent ambulation Overall status at discharge: patient is back to baseline Mental Status: mental status grossly normal Speech and Movement: speech and movement normal Mood: congruent mood Affect: normal affect and No blunted Quality:SDOH Health Related Social Needs: No Data to Display Exam Narrative Exam Narrative: Thin male of stated age in no acute distress head is atraumatic normal facial appearance eyes nonicteric noninjected EOMs intact oral mucosa is moist neck is supple full range of motion cardiovascular regular rate and rhythm he is well-perfused with good pulses peripherally respirations even and unlabored abdomen is soft nontender his extremities are without edema moves all equally strength 5 out of 5 psychiatric normal mood and affect makes good eye contact with no behavioral concerns noted. He is interactive and appropriate Psych Mental Status: mental status grossly normal Speech and Movement: speech and movement normal Mood: congruent mood Affect: normal affect and No blunted DS: Data Vitals/I&O Vitals and I&O: Vital Signs Temperature 36.9 C 03/14/24 15:00 Temperature Source Tympanic 03/14/24 15:00 Pulse 102 H 03/14/24 15:00 Pulse 122 H 03/13/24 20:50 Respiratory Rate 14 03/14/24 15:00 Respiratory Effort Normal, Non-Labored 03/14/24 00:46 Respiratory Depth Normal 03/14/24 00:46 Respiratory Pattern Normal 03/14/24 00:46 Blood Pressure 127/74 03/14/24 15:00 Blood Pressure Mean 88 03/13/24 20:46 Blood Pressure Position Sitting 03/13/24 15:31 Pulse Oximetry 100 03/14/24 15:00 Oxygen Delivery Method Room Air 03/14/24 15:00 Oxygen Flow Rate 0 03/14/24 15:00 Pain Level 2 03/14/24 07:34 Intake & Output 03/13/24 03/14/24 03/14/24 23:59 11:59 23:59 Intake Total 1000 / 1000 Output Total 200 / 1000 800 / 1000 Balance 1000 / 1000 -200 / -1000 -800 / -1000 Weight 68.039 kg 68.03 kg Intake: IV 1000 / 1000 Output: Emesis 200 / 1000 800 / 1000 Other: Emesis Description Retching Retching Clear/Water Voiding Methods Toilet Toilet Data Completed and Pending Labs on day of discharge: Labs from last 24 hours 03/14/24 03/13/24 06:15 16:05 WBC 6.71 RBC 4.68 Hgb 14.2 D Hct 39.3 L MCV 84 MCH 30.3 MCHC 36.1 H RDW 11.5 L Plt Count 211 MPV 9.9 Sodium 139 Potassium 3.2 L Chloride 104 Carbon Dioxide 24.8 Anion Gap 10.2 BUN 6 L Creatinine 1.1 Est GFR (CKD-EPI 2020) 98.56 Glucose 98 Calcium 9.0 Magnesium 2.0 Total Bilirubin 0.91 AST 13 L ALT 15 L Alkaline Phosphatase 59 Total Protein 6.4 Albumin 3.8 TSH 2.11 PFSH All Active Problems (Updated 03/15/24 @ 00:06 by SELENA AVILA) Hypokalemia (Acute) Depression with suicidal ideation (Chronic) Intentional overdose (Acute) Social History Smoking/Tobacco Use Status: Never Smoking risk assessment performed?: Yes Alcohol Intake: current Alcohol Intake frequency: holidays/special occasions only Alcohol type: beer, wine and hard liquor Drug use: Never Substance use type: does not use Housing: house Do you feel safe at home: Yes Additional Social history: No currently romantic relationship. Positive supportive relationship w mom and dad as well as both brothers. Time Spent with Patient Time Spent with Patient: 45-69 minutes Time was spent: preparing to see the patient(eg.review tests), obtaining and/or reviewing separately otained hiistory, ordering medications,tests, procedures, referring, communicating with other health skin care instructor, indepentently interpreting results and counseling the patient
== END 2024-03-14 18:06 | disposition home or self-care (01) | DRG 918 ==
LOC: ER 19:51 → MS 23:54
PROVIDERS: Admitting Provider Family Medicine; Emergency Provider Physician Assistant; Visit Provider Family Medicine
DX: T43.292A Poisoning by other antidepressants, intentional self-harm, initial encounter (principal); R45.851 Suicidal ideations; E87.6 Hypokalemia; R00.0 Tachycardia, unspecified; R11.2 Nausea with vomiting, unspecified; R94.31 Abnormal electrocardiogram [ECG] [EKG]; F32.A Depression, unspecified; F90.9 Attention-deficit hyperactivity disorder, unspecified type
CPT/HCPCS: 00123; 36415; 80053; 80307; 85027; 93005; 96361; 96374; 96375; 96376; 99285; 80320; 80329; 81003; 83735; 84443; 85025; 93010; 99223; 99239; J2060; J2405